=== PATIENT | male | born 1990 | race African-American/Black ===

== ENCOUNTER 2025-05-09 14:43 | Outpatient (AMB) | payer OTHER, SELFPAY ==
--- OUTSIDE RECORDS SUMMARY | 2024-09-05 08:30 | XMS_ITS | Encounter Summary ---
Author Organization [employer] Address [address] [place] [address] Care Team Providers Care Cold Storage Worker Name Role Phone Rah Palmer MD Primary Care Provider Encounter Details Date Type Department Care Team (Late st Contact Info) Description 09/05/2024 8:30 AM EDT Hospital Encounter TH HISTORIC ENCOUNTERS EASTERN CONVERSION ONLY Rah Palmer MD [address] [place] [phone] Social History Tobacco Use Types Packs/Day Years Used Date Smoking Tobacco: Never Smokeless Tobacco: Never Alcohol Use Standard Drinks/Week Comments Never 0 (1 standard drink = 0.6 oz pur e alcohol) Sex and Gender Information Value Date Recorded Sex Assigned at Not on file Legal Sex Male 11:01 AM EDT Gender Identity Not on file Sexual Orientation Not on file documented as of this encounter Plan of Treatment Upcoming Encounters Date Type Department Care Team (Late st Contact Info) Description 07/18/2025 2:45 PM EDT Office Visit Bariatric Surgery - [place] [address] [place] [phone] Stephan Pleitez MD [address] [place] [address] documented as of this encounter Visit Diagnoses Not on filedocumented in this encounter Care Teams Cold Storage Worker Relationship Specialty Start Date End Date Rah Palmer MD [address] [place] [id number] PCP - General 03/27/24 documented as of this encounter
--- NOTE | 2025-05-09 14:48 | MHC.OFFVIS ---
Vital Signs 05/09/25 14:48 Height 5 ft 10 in Intake Visit Reasons: 3m Accompanied by: Parent [facility] Allergy (Verified 05/09/25 14:59) Unknown Penicillins Allergy (Verified 05/09/25 14:59) Unknown Medication List - Last Reconciled 05/09/25 by Marlyn Mendez CNP lamotrigine 100 mg PO BID HPI Comments Details: He was doing okay. No further seizures. He was taking lamotrigine 100mg twice a day. Mood was on and off. He was not so irritable. He has put on some weight, and says he really likes to eat. He started going to the [facility] and was trying to eat better. Sleep was okay. He no showed appointment in 02/2025 for EEG. Gets sadler and irritated at times. Has put on some weight and eating more. He had a?single seizure at daycare program on 03/12/2024 when he started having general body shaking and then fell over and had a convulsive seizure. Details are not clear. There was no tongue biting or incontinence. He was admitted to the [facility] where his CAT scan was negative. Limited MRI was unremarkable. No EEG was done. He was discharged on Keppra 500 mg twice a day and lamotrigine 12.5 mg twice a day. He started having personality changes after starting the medications, becoming more hyperactive, irritable, and hyperfocused on bowel movements. He was tapered off Keppra and lamotrigine dose was gradually increased, and personality changes seemed to resolve. There was no previous history of seizures. [facility] Medical History (Updated 05/09/25 @ 15:03 by Marlyn Mendez CNP) Autism Seizure disorder Social History (Updated 05/08/25 @ 17:04 by Lizzie Kelly MA) Patient Tobacco Use Status: Never used Tobacco Review of Systems Const Denies chills, Denies daytime sleepiness, Denies difficulty sleeping, Denies fatigue, Denies fever(s), Denies frequent falls, Denies headache(s), Denies increased appetite, Denies poor appetite, Denies snoring, Denies weakness, Reports weight gain and Denies weight loss Eyes Denies loss of vision ENT Denies vertigo, Denies dizziness, Denies headache(s) and Denies neck pain Card Denies chest pain at rest, Denies chest pain with activity, Denies syncope, Denies leg edema, Denies palpitations, Denies dyspnea and Denies dyspnea on exertion Resp Denies cough, Denies dyspnea, Denies dyspnea on exertion and Denies snoring GI Denies abdominal pain, Denies constipation, Denies heartburn, Denies diarrhea and Denies nausea Denies urinary frequency, Denies urinary incontinence and Denies urinary urgency Musc Denies abnormal gait, Denies back pain, Denies myalgias, Denies arthralgias, Denies neck pain, Denies numbness, Denies stiffness and Denies tingling Neuro Denies abnormal gait, Denies vertigo, Denies dizziness, Denies syncope, Denies frequent falls, Denies headache(s), Denies lack of coordination, Denies loss of vision, Denies memory loss, Denies numbness, Denies Other visual disturbances, Denies restless legs, Reports seizure-like activity (None recently), Denies tingling, Denies paresthesias, Denies tremor(s) and Denies weakness Psych Denies anxiety, Denies depression, Denies memory loss, Reports mood swings, Denies visual hallucinations and Denies hallucinations Endo Denies fatigue and Denies palpitations Physical Exam Const Other: General Appearance:? normal, in no acute distress. Heart:? S1, S2 normal, no murmurs. Lungs:? clear anteriorly and posteriorly. Musculoskeletal:? normal. Extremities:? no edema. Psych:? alert, oriented, cognitive function intact, cooperative with exam. Neuro Other: Abnormal Neurological Findings:?none.? Mental Status: alert and oriented X 3. Normal attention, orientation, memory, and affect. Cranial Nerves: Pupils are equal, round, and reactive to light. External ocular muscles are intact. Visual anthony are full, no ptosis. Face is symmetrical, no facial weakness or droop. Facial sensations are normal. Tongue protrudes in midline. Palate elevates symmetrically. Shoulder shrugging is normal Motor Examination: Normal muscle tone, bulk and strength. No atrophy or fasciculations. No drift of the extended upper extremities. DTR 2+. Plantars are flexor. Straight Leg Raisin degrees. Sensory Exam: Normal light touch, temperature, pinprick, vibration, and joint-position sensations. Rhomberg sign is absent. Coordination: No ataxia. No titubation. Sgeiqw-fe-hwqt, hlwm-audl-biii test, and rapid alternating movements were normal. Gait Exam: Within normal limits. Cerebellar Signs: Susidb-zo-xtxy and eyvx-kc-qofj is normal. No dysdiadochokinesia. Extrapyramidal System: No tremor, rigidity with normal facial expressions. No bradykinesia. No bradyphrenia. Normal arm swing and posture. No propulsion or retropulsion. Speech: Normal. No dysphasia or dysarthria. Assessment & Plan Assessment & Plan (1) Seizure disorder: Code(s): G40.909 - Epilepsy, unspecified, not intractable, without status epilepticus Category: Medical Plan: He missed appointment for EEG in 02/2025 and test was reordered. Reviewed plan from last appointment with Dr. Restrepo on 02/07/2025 with patient and father: if EEG normal (and no further seizures), can consider tapering off lamotrigine over 3 months. It is unclear if weight gain may be from lamotrigine. For now, he was advised to continue lamotrigine 100mg 1 tablet twice a day. Plan . Orders: Orders EEG electroencephalogram Today G40.909 - Epilepsy, unspecified, not intractable, without status epilepticus Coding Level of Care Code Est Pt Level 4 (01862) Diagnoses Seizure disorder G40.909
== END 2025-05-09 15:14 | disposition home or self-care (01) ==
LOC: HO.HSM 14:44
PROVIDERS: PCP Internal Medicine; Referring Provider Internal Medicine; Visit Provider Registered Nurse
DX: G40.909 Epilepsy, unspecified, not intractable, without status epilepticus (principal)
CPT/HCPCS: 99214

== ENCOUNTER → 2025-05-09 14:43 | Outpatient (BNVA) | payer OTHER, SELFPAY | PROVIDERS: PCP Internal Medicine; Referring Provider Internal Medicine; Visit Provider Registered Nurse | DX: G40.909 Epilepsy, unspecified, not intractable, without status epilepticus (principal) | CPT/HCPCS: 99212 ==

== ENCOUNTER 2025-06-04 14:41 | Outpatient (REF) | payer OTHER, SELFPAY ==
--- OUTSIDE RECORDS SUMMARY | 2024-09-05 08:30 | XMS_ITS | Encounter Summary ---
Author Organization [employer] Address [address] [place] [address] Care Team Providers Care Head Men'S Golf Coach Name Role Phone Rah Palmer MD Primary Care Provider Encounter Details Date Type Department Care Team (Late st Contact Info) Description 09/05/2024 8:30 AM EDT Hospital Encounter TH HISTORIC ENCOUNTERS EASTERN CONVERSION ONLY Rah Palmer MD [address] [place] [id number] Social History Tobacco Use Types Packs/Day Years [...] Care Team (Late st Contact Info) Description 06/18/2025 2:45 PM EDT Office Visit Adult Medicine [address] [phone] Rah Palmer MD [address] [place] [phone] 07/18/2025 2:45 PM EDT Office Visit Bariatric Surgery [address] [place] [phone] Stephan Pleitez MD [address] [facility] [address] [place] [address] documented as of this encounter Visit Diagnoses Not on filedocumented in this encounter Care Teams Head Men'S Golf Coach Relationship Specialty Start Date End Date Rah Palmer MD [address] [place] [phone] PCP - General 03/27/24 documented as of this encounter
--- NOTE | 2025-06-04 14:46 | EEG_ITS ---
Description: This is a routine waking EEG using the 10-20 electrode placement system. The waking background activity consists of low-voltage fast frequency seen diffusely intermixed with low-voltage posterior 9-10 hertz alpha frequency.? Photic stimulation is without activation.? Hyperventilation produces no change in the background activity. No focal, lateralizing or paroxysmal discharges are seen. Impression: This waking EEG is within normal limits MTDD
== END 2025-06-04 14:42 | disposition home or self-care (01) ==
LOC: HO.NEURO 14:41
PROVIDERS: PCP Internal Medicine; Visit Provider Psychiatry & Neurology Neurology
DX: G40.909 Epilepsy, unspecified, not intractable, without status epilepticus (principal)
CPT/HCPCS: 95816

== ENCOUNTER → 2025-06-04 14:46 | Outpatient (BNV) | payer OTHER, SELFPAY | PROVIDERS: PCP Internal Medicine; Visit Provider Psychiatry & Neurology Neurology | DX: G40.909 Epilepsy, unspecified, not intractable, without status epilepticus (principal) | CPT/HCPCS: 95816 ==

== ENCOUNTER 2025-08-15 14:40 | Outpatient (AMB) | payer OTHER, SELFPAY ==
--- NOTE | 2025-08-15 14:43 | A.OFFVIS_ITS ---
Intake Visit Reasons: 3M/ Sz Accompanied by: Father [facility] Allergy (Verified 08/15/25 14:44) Unknown Penicillins Allergy (Verified 08/15/25 14:44) Unknown Medication List - Last Reconciled 08/15/25 by Marlyn Mendez CNP fluticasone propionate 50 mcg/actuation 1 spray intranasal DAILY lamotrigine 100 mg PO BID HPI Comments Details: He was doing okay. He has not been taking lamotrigine since last appointment in 05/2025. No seizures. His father says he seems to be doing better without the medication. Mood was okay. Weight was still a problem, but he was following with weight management and was hoping to start Zepbound. Sleep was okay. Previously, was getting sadler and irritated at times. Had gained weight and was eating more. He had a?single seizure at daycare program on 03/12/2024 when he started having general body shaking and then fell over and had a convulsive seizure. Details are not clear. There was no tongue biting or incontinence. He was admitted to the [facility] where his CAT scan was negative. Limited MRI was unremarkable. No EEG was done. He was discharged on Keppra 500 mg twice a day and lamotrigine 12.5 mg twice a day. He started having personality changes after starting the medications, becoming more hyperactive, irritable, and hyperfocused on bowel movements. He was tapered off Keppra and lamotrigine dose was gradually increased, and personality changes seemed to resolve. There was no previous history of seizures. [facility] Medical History (Updated 05/09/25 @ 15:03 by Marlyn Mendez CNP) Autism Seizure disorder Social History (Updated 05/08/25 @ 17:04 by Lizzie Kelly MA) Patient Tobacco Use Status: Never used Tobacco Review of Systems Const Denies chills, Denies daytime sleepiness, Denies difficulty sleeping, Denies fatigue, Denies fever(s), Denies frequent falls, Denies headache(s), Denies increased appetite, Denies poor appetite, Denies snoring, Denies weakness, Reports weight gain and Denies weight loss Eyes Denies loss of vision ENT Denies vertigo, Denies dizziness, Denies headache(s) and Denies neck pain Card Denies chest pain at rest, Denies chest pain with activity, Denies syncope, Denies leg edema, Denies palpitations, Denies dyspnea and Denies dyspnea on exe rtion Resp Denies cough, Denies dyspnea, Denies dyspnea on exertion and Denies snoring GI Denies abdominal pain, Denies constipation, Denies heartburn, Denies diarrhea and Denies nausea Denies urinary frequency, Denies urinary incontinence and Denies urinary urgency Musc Denies abnormal gait, Denies back pain, Denies myalgias, Denies arthralgias, Denies neck pain, Denies numbness, Denies stiffness and Denies tingling Neuro Denies abnormal gait, Denies vertigo, Denies dizziness, Denies syncope, Denies frequent falls, Denies headache(s), Denies lack of coordination, Denies loss of vision, Denies memory loss, Denies numbness, Denies Other visual disturbances, Denies restless legs, Reports seizure-like activity (None recently), Denies tingling, Denies paresthesias, Denies tremor(s) and Denies weakness Psych Denies anxiety, Denies depression, Denies memory loss, Reports mood swings, Denies visual hallucinations and Denies hallucinations Endo Denies fatigue and Denies palpitations Physical Exam Const Other: General Appearance:? normal, in no acute distress. Heart:? S1, S2 normal, no murmurs. Lungs:? clear anteriorly and posteriorly. Musculoskeletal:? normal. Extremities:? no edema. Psych:? alert, oriented, cognitive function intact, cooperative with exam. Neuro Other: Abnormal Neurological Findings:?none.? Mental Status: alert and oriented X 3. Normal attention, orientation, memory, and affect. Cranial Nerves: Pupils are equal, round, and reactive to light. External ocular muscles are intact. Visual anthony are full, no ptosis. Face is symmetrical, no facial weakness or droop. Facial sensations are normal. Tongue protrudes in midline. Palate elevates symmetrically. Shoulder shrugging is normal Motor Examination: Normal muscle tone, bulk and strength. No atrophy or fasciculations. No drift of the extended upper extremities. DTR 2+. Plantars are flexor. Sensory Exam: Normal light touch, temperature, pinprick, vibration, and joint- position sensations. Rhomberg sign is absent. Coordination: No ataxia. No titubation. Gait Exam: Within normal limits. Cerebellar Signs: Pnrfer-os-wgii is okay. Extrapyramidal System: No tremor, rigidity with normal facial expressions. No bradykinesia. No bradyphrenia. Normal arm swing and posture. No propulsion or retropulsion. Speech: Normal. Results Reviewed Results Reviewed: [address] [address] Electroencephalogram Report Signed Patient: Davey Kennedy MR#: [id number] : 1990 Acct:[id number] Age/Sex: 35 / M ADM Date: 06/04/25 Loc: HO.NEURO Attending Dr: Gucci Restrepo MD Ordering Physician: Marlyn Mendez CNP Date of Service: 06/04/25 Procedure(s): EEG electroencephalogram Accession Number(s): [id number] cc: Rah Palmer MD~ Description: This is a routine waking EEG using the 10-20 electrode placement system. The waking background activity consists of low-voltage fast frequency seen diffusely intermixed with low-voltage posterior 9-10 hertz alpha frequency.? Photic stimulation is without activation.? Hyperventilation produces no change in the background activity. No focal, lateralizing or paroxysmal discharges are seen. Impression: This waking EEG is within normal limits -- 07/11/24 Waking EEG within normal limits Assessment & Plan Assessment & Plan (1) Seizure disorder: Code(s): G40.909 - Epilepsy, unspecified, not intractable, without status epilepticus Category: Medical Plan: EEG results reviewed, within normal limits. He has not taken lamotrigine since 05/2025 and has not had any seizures. Given that there were no findings on EEG and he has been without medication for about 2 months at this point without any seizures, will stay off medication for now (as plan was to taper off lamotrigine at this visit if EEG was normal and no further seizures which was discussed at previous appointment in 05/2025). They were advised to contact the office should any seizure-like episodes occur, at which time starting another medication would be discussed. Plan Meds tried: levetiracetam, lamotrigine Coding Level of Care Code Est Pt Level 4 (06132) Diagnoses Seizure disorder G40.909
== END 2025-08-15 15:01 | disposition home or self-care (01) ==
LOC: HO.HSM 14:41
PROVIDERS: PCP Internal Medicine; Visit Provider Registered Nurse
DX: G40.909 Epilepsy, unspecified, not intractable, without status epilepticus (principal)
CPT/HCPCS: 99214

== ENCOUNTER → 2025-08-15 14:40 | Outpatient (BNVA) | payer OTHER, SELFPAY | PROVIDERS: PCP Internal Medicine; Visit Provider Registered Nurse | DX: G40.909 Epilepsy, unspecified, not intractable, without status epilepticus (principal) | CPT/HCPCS: 99212 ==